=== PATIENT | male | born 1985 | race Caucasian/White ===

== ENCOUNTER 2017-12-03 15:23 | Emergency (ER) | payer SELFPAY | END 2017-12-03 17:36 | disposition home or self-care (01) | LOC: FTE 15:23 | DX: S61.203A Unspecified open wound of left middle finger without damage to nail, initial encounter (principal); F17.210 Nicotine dependence, cigarettes, uncomplicated; W26.0XXA Contact with knife, initial encounter; Y92.89 Other specified places as the place of occurrence of the external cause | CPT/HCPCS: 99283 ==